=== PATIENT | female | born 1970 | race Caucasian/White ===

== ENCOUNTER 2018-05-13 10:32 | Outpatient (CLI) | payer OTHER ==
--- NOTE | 2018-05-13 11:42 | RAD ---
CHEST 2 VIEWS: HISTORY: Cough. COMPARISON: 02/20/2015. FINDINGS: Cardiac silhouette and pulmonary vasculature are unremarkable. Mediastinum is midline. No confluent airspace consolidation, pneumothorax, or pleural fluid. IMPRESSION: No active cardiopulmonary abnormalities are demonstrated. POS: [facility]
== END 2018-05-13 10:33 | disposition home or self-care (01) ==
LOC: RAD-FRANK 10:32
PROVIDERS: ATTEND Nurse Practitioner Family
DX: R05 Cough (principal)
CPT/HCPCS: 71046

== ENCOUNTER 2019-07-02 13:49 | Emergency (ER) | payer OTHER, SELFPAY ==
[2019-07-02] MEDS ORDERED: Ondansetron ODT 4 MG TAB ONE (15:15)
[2019-07-02] MEDS ORDERED: Morphine 4 MG/ML VIAL ONE (15:15)
[2019-07-02] MEDS ORDERED: Ketorolac Tromethamine 30 MG/ML VIAL ONE (15:15)
[2019-07-02] MEDS ORDERED: Cyclobenzaprine 10 MG TAB ONE (16:15)
== END 2019-07-02 17:33 | disposition home or self-care (01) ==
LOC: ERS 13:49
DX: S39.012A Strain of muscle, fascia and tendon of lower back, initial encounter (principal); G89.29 Other chronic pain; X58.XXXA Exposure to other specified factors, initial encounter
CPT/HCPCS: 96372; 99283; J1885; J2270; Q0162